=== PATIENT | female | born 1955 | race African-American/Black ===

== ENCOUNTER 2016-12-07 04:19 | Emergency (ER) | payer SELFPAY ==
[~2016-12-07] VITALS: Ht 172.7 cm; Wt 100.0 kg
[~2016-12-07 04:19] MED LIST: ASPIRIN 81 LOW81 MG PO; ASPIRIN325 MG PO; BABY ASPIRIN81 MG OR; BACTRIM DS1 TAB PO; CIPRO500 MG OR; CIPROFLOXACN500 MG PO; ERYTHROM ETH400 MG OR; FLEXERIL PO; HYZAAR1 TA1 OR; LOPRESSOR 550 MG/TAB PO; LOSARTAN POT50 MG PO; METFORMIN500 M1 PO; METFORMIN500 MG PO; METOPROLOL TART50 MG PO; NAPROSYN500 MG OR; NAPROSYN500 MG PO; PERCOCET 5/325M1 TAB PO; PRAVASTATIN SOD20 MG PO; ZITHROMAX250 MG OR
[2016-12-07] MEDS ORDERED: IBUPROFEN600 MG PO (06:59)
[2016-12-07 07:03] VITALS: BP 145/82
== END 2016-12-07 07:16 | disposition home or self-care (01) | DRG 563 ==
LOC: ED 04:19
DX: S83.92XA Sprain of unspecified site of left knee, initial encounter (principal); S80.02XA Contusion of left knee, initial encounter; W17.89XA Other fall from one level to another, initial encounter; Y93.01 Activity, walking, marching and hiking; Y92.480 Sidewalk as the place of occurrence of the external cause

== ENCOUNTER 2017-01-25 03:52 | Emergency (ER) | payer SELFPAY ==
[~2017-01-25] VITALS: Ht 172.7 cm; Wt 95.0 kg
[~2017-01-25 03:52] MED LIST changes: +IBUPROFEN600 MG PO
[2017-01-25] MEDS ORDERED: NAPROSYN500 MG PO (04:54)
[2017-01-25 05:10] VITALS: BP 148/81
== END 2017-01-25 05:10 | disposition home or self-care (01) | DRG 563 ==
LOC: ED 03:52
DX: S46.912A Strain of unspecified muscle, fascia and tendon at shoulder and upper arm level, left arm, initial encounter (principal); I10 Essential (primary) hypertension; E11.9 Type 2 diabetes mellitus without complications; X58.XXXA Exposure to other specified factors, initial encounter

== ENCOUNTER 2017-02-17 17:49 | Emergency (ER) | payer SELFPAY ==
[~2017-02-17] VITALS: Ht 172.7 cm; Wt 73.0 kg
[2017-02-17 18:23] LABS: HEMATOCRIT 43.4 % (37.0-47.0); HEMOGLOBIN 13.8 g/dl (12.0-16.0); IMMATURE GRANULOCYTES 0.2 % (0.0-1.0); MEAN CELL VOLUME 92.9 fL CALC (80.0-100.0); MEAN CORPUSCULAR HGB 29.6 pG CALC (26.0-32.0); MEAN CORPUSCULAR HGB CONC 31.8 g/L CALC (32.0-36.0); NEUT# 2.37 thou/uL (2.00-7.15); RED BLOOD COUNT 4.67 mill/uL (4.20-5.60)
[2017-02-17] MEDS ORDERED: ASPIRINCHW 81MG PO (18:23)
[2017-02-17 18:24] LABS: URINE BILIRUBIN - DIPSTICK NEGATIVE (NEGATIVE); URINE BLOOD DIPSTICK NEGATIVE (NEGATIVE); URINE CLARITY CLEAR; URINE COLOR YELLOW; URINE GLUCOSE - DIPSTICK NEGATIVE (NEGATIVE); URINE KETONE NEGATIVE (NEGATIVE); URINE LEUK ESTERASE NEGATIVE (NEGATIVE); URINE NITRITE - DIPSTICK NEGATIVE (Negative); URINE PH 5.5 (4.5-8.0); URINE PROTEIN - DIPSTICK TRACE mg/dL (NEG-TRACE); URINE SPECIFIC GRAVITY >=1.030
[2017-02-17 18:38] LABS: ALBUMIN 4.4 g/dL (3.2-5.0); ALKALINE PHOSPHATASE 110 u/l (38-126); AMYLASE 50 u/l (30-110); ANION GAP 17 (6-22 (CALC)); BILIRUBIN, TOTAL 0.3 mg/dL (0.0-1.4); BUN 9 mg/dL (8-23); BUN/CREATININE RATIO 15 (12-20 (CALC)); CALCIUM 9.6 mg/dL (8.4-10.2); CARBON DIOXIDE 29 mmol/l (22-30); CHLORIDE 106 mmol/l (95-108); CREATININE 0.6 mg/dL (0.5-1.0); GFR > 60 ML/MIN (>=60 (CALC)); GFR FOR AFR.AMER. > 60 ML/MIN (>=60 (CALC)); GLUCOSE 124 mg/dL (82-115); LIPASE 63 u/l (23-300); POTASSIUM 3.9 mmol/l (3.5-5.1); SGOT/AST 32 u/l (9-36); SGPT/ALT 29 u/l (11-66); SODIUM 148 mmol/l (137-146); TOTAL PROTEIN 8.3 g/dL (6.3-8.2)
[2017-02-17] MEDS ORDERED: LOMOTIL2.5 MG PO (20:21)
[2017-02-17] MEDS ORDERED: ZOFRAN ODT4 MG PO (20:21)
[2017-02-17 20:50] VITALS: BP 159/83
== END 2017-02-17 20:50 | disposition home or self-care (01) | DRG 392 ==
LOC: ED 17:49
PROVIDERS: Emergency Medicine
DX: K52.9 Noninfective gastroenteritis and colitis, unspecified (principal); I10 Essential (primary) hypertension; R10.30 Lower abdominal pain, unspecified; E11.9 Type 2 diabetes mellitus without complications; H91.90 Unspecified hearing loss, unspecified ear
CPT/HCPCS: Q9967

== ENCOUNTER 2017-05-30 01:23 | Emergency (ER) | payer SELFPAY ==
[~2017-05-30] VITALS: Ht 172.7 cm; Wt 92.8 kg
[~2017-05-30 01:23] MED LIST changes: +ASPIRINCHW 81MG PO; +LOMOTIL2.5 MG PO; +ZOFRAN ODT4 MG PO
[2017-05-30 02:59] LABS: HEMATOCRIT 40.1 % (37.0-47.0); HEMOGLOBIN 12.7 g/dl (12.0-16.0); IMMATURE GRANULOCYTES 0.3 % (0.0-1.0); MEAN CELL VOLUME 93.3 fL CALC (80.0-100.0); MEAN CORPUSCULAR HGB 29.5 pG CALC (26.0-32.0); MEAN CORPUSCULAR HGB CONC 31.7 g/L CALC (32.0-36.0); NEUT# 3.58 thou/uL (2.00-7.15); RED BLOOD COUNT 4.3 mill/uL (4.20-5.60); RED CELL DISTRI WIDTH 14.4 % (11.5-15.5)
[2017-05-30 03:07] LABS: URINE BILIRUBIN - DIPSTICK NEGATIVE (NEGATIVE); URINE BLOOD DIPSTICK TRACE-INTACT (NEGATIVE); URINE CLARITY SLIGHT CLOUDY; URINE COLOR YELLOW; URINE GLUCOSE - DIPSTICK NEGATIVE (NEGATIVE); URINE KETONE NEGATIVE (NEGATIVE); URINE NITRITE - DIPSTICK NEGATIVE (Negative); URINE PH 5.5 (4.5-8.0); URINE PROTEIN - DIPSTICK NEGATIVE (NEG-TRACE); URINE SPECIFIC GRAVITY >=1.030; URINE UROBILINOGEN - DIPSTICK 0.2 E.U./dL (0.2)
[2017-05-30 03:08] LABS: URINE LEUK ESTERASE SMALL (NEGATIVE)
[2017-05-30 03:13] LABS: ALBUMIN 4.4 g/dL (3.2-5.0); ALKALINE PHOSPHATASE 129 u/l (38-126); AMYLASE 64 u/l (30-110); ANION GAP 16 (6-22 (CALC)); BILIRUBIN, TOTAL 0.5 mg/dL (0.0-1.4); BUN 13 mg/dL (8-23); BUN/CREATININE RATIO 19 (12-20 (CALC)); CALCIUM 9.6 mg/dL (8.4-10.2); CARBON DIOXIDE 28 mmol/l (22-30); CHLORIDE 105 mmol/l (95-108); CREATININE 0.7 mg/dL (0.5-1.0); GFR > 60 ML/MIN (>=60 (CALC)); GFR FOR AFR.AMER. > 60 ML/MIN (>=60 (CALC)); GLUCOSE 122 mg/dL (82-115); LIPASE 116 u/l (23-300); SGOT/AST 18 u/l (9-36); SGPT/ALT 26 u/l (11-66); SODIUM 145 mmol/l (137-146); TOTAL PROTEIN 8.2 g/dL (6.3-8.2)
[2017-05-30 03:16] LABS: URINE BACTERIA FEW hpf; URINE MUCUS FEW hpf (NONE-FEW); URINE RBC 0-2 RBC/hpf (0-5); URINE SQUAMOUS EPITHELIAL CELL MODERATE EPI/hpf (0-FEW); URINE WBC 20-50 WBC/hpf (0-5)
[2017-05-30 03:24] LABS: MYOGLOBIN 24 ng/mL (0 - 62)
[2017-05-30] MEDS ORDERED: ZOFRAN ODT4 MG PO (04:45)
[2017-05-30] MEDS ORDERED: CIPROFLOXACN500 MG PO (04:45)
[2017-05-30 04:49] VITALS: BP 181/89
== END 2017-05-30 04:59 | disposition home or self-care (01) | DRG 690 ==
LOC: ED 01:23
PROVIDERS: Emergency Medicine
DX: N39.0 Urinary tract infection, site not specified (principal); R11.0 Nausea; R10.33 Periumbilical pain; R10.13 Epigastric pain
CPT/HCPCS: Q9967

== ENCOUNTER 2017-06-13 15:28 | Emergency (ER) | payer SELFPAY ==
[~2017-06-13] VITALS: Ht 172.7 cm; Wt 91.8 kg
[2017-06-13 18:17] LABS: URINE BILIRUBIN - DIPSTICK NEGATIVE (NEGATIVE); URINE BLOOD DIPSTICK NEGATIVE (NEGATIVE); URINE CLARITY CLEAR; URINE COLOR YELLOW; URINE GLUCOSE - DIPSTICK NEGATIVE (NEGATIVE); URINE KETONE TRACE mg/dL (NEGATIVE); URINE LEUK ESTERASE NEGATIVE (NEGATIVE); URINE NITRITE - DIPSTICK NEGATIVE (Negative); URINE PROTEIN - DIPSTICK NEGATIVE (NEG-TRACE); URINE SPECIFIC GRAVITY 1.025
[2017-06-13 18:57] LABS: HEMATOCRIT 37.8 % (37.0-47.0); HEMOGLOBIN 12.3 g/dl (12.0-16.0); IMMATURE GRANULOCYTES 0.3 % (0.0-1.0); MEAN CELL VOLUME 92.6 fL CALC (80.0-100.0); MEAN CORPUSCULAR HGB 30.1 pG CALC (26.0-32.0); MEAN CORPUSCULAR HGB CONC 32.5 g/L CALC (32.0-36.0); NEUT# 4.18 thou/uL (2.00-7.15); RED BLOOD COUNT 4.08 mill/uL (4.20-5.60); RED CELL DISTRI WIDTH 14.2 % (11.5-15.5)
[2017-06-13 19:09] LABS: ALBUMIN 3.9 g/dL (3.2-5.0); ALKALINE PHOSPHATASE 109 u/l (38-126); ANION GAP 15 (6-22 (CALC)); BILIRUBIN, TOTAL 0.4 mg/dL (0.0-1.4); BUN 10 mg/dL (8-23); BUN/CREATININE RATIO 16 (12-20 (CALC)); CALCIUM 9.8 mg/dL (8.4-10.2); CARBON DIOXIDE 29 mmol/l (22-30); CHLORIDE 104 mmol/l (95-108); CREATININE 0.6 mg/dL (0.5-1.0); GFR > 60 ML/MIN (>=60 (CALC)); GFR FOR AFR.AMER. > 60 ML/MIN (>=60 (CALC)); GLUCOSE 108 mg/dL (82-115); SGOT/AST 16 u/l (9-36); SGPT/ALT 26 u/l (11-66); SODIUM 143 mmol/l (137-146); TOTAL PROTEIN 7.3 g/dL (6.3-8.2)
[2017-06-13] MEDS ORDERED: LOMOTIL2.5 MG PO (19:14)
[2017-06-13] MEDS ORDERED: ZOFRAN ODT4 MG PO (19:14)
[2017-06-13 20:00] VITALS: BP 135/71
== END 2017-06-13 20:00 | disposition home or self-care (01) | DRG 392 ==
LOC: ED 15:28
PROVIDERS: Emergency Medicine
DX: K52.9 Noninfective gastroenteritis and colitis, unspecified (principal); I10 Essential (primary) hypertension; E11.9 Type 2 diabetes mellitus without complications; H91.90 Unspecified hearing loss, unspecified ear

== ENCOUNTER 2017-07-15 18:33 | Emergency (ER) | payer SELFPAY ==
[~2017-07-15] VITALS: Ht 172.7 cm; Wt 94.2 kg
[2017-07-15 19:58] LABS: URINE BILIRUBIN - DIPSTICK NEGATIVE (NEGATIVE); URINE BLOOD DIPSTICK TRACE-LYSED (NEGATIVE); URINE CLARITY CLEAR; URINE COLOR YELLOW; URINE GLUCOSE - DIPSTICK NEGATIVE (NEGATIVE); URINE KETONE NEGATIVE (NEGATIVE); URINE NITRITE - DIPSTICK NEGATIVE (Negative); URINE PH 7.5 (4.5-8.0); URINE PROTEIN - DIPSTICK TRACE mg/dL (NEG-TRACE); URINE SPECIFIC GRAVITY >=1.030
[2017-07-15 20:02] LABS: URINE LEUK ESTERASE SMALL (NEGATIVE)
[2017-07-15 20:53] LABS: ALBUMIN 3.9 g/dL (3.2-5.0); ALKALINE PHOSPHATASE 108 u/l (38-126); ANION GAP 12 (6-22 (CALC)); BILIRUBIN, TOTAL 0.4 mg/dL (0.0-1.4); BUN 10 mg/dL (8-23); BUN/CREATININE RATIO 15 (12-20 (CALC)); CALCIUM 9.4 mg/dL (8.4-10.2); CARBON DIOXIDE 32 mmol/l (22-30); CHLORIDE 107 mmol/l (95-108); CREATININE 0.6 mg/dL (0.5-1.0); GFR > 60 ML/MIN (>=60 (CALC)); GFR FOR AFR.AMER. > 60 ML/MIN (>=60 (CALC)); GLUCOSE 98 mg/dL (82-115); POTASSIUM 4.1 mmol/l (3.5-5.1); SGOT/AST 18 u/l (9-36); SGPT/ALT 24 u/l (11-66); SODIUM 146 mmol/l (137-146)
[2017-07-15 21:09] LABS: HEMATOCRIT 38.3 % (37.0-47.0); HEMOGLOBIN 12.3 g/dl (12.0-16.0); IMMATURE GRANULOCYTES 0.2 % (0.0-1.0); MEAN CELL VOLUME 94.1 fL CALC (80.0-100.0); MEAN CORPUSCULAR HGB 30.2 pG CALC (26.0-32.0); MEAN CORPUSCULAR HGB CONC 32.1 g/L CALC (32.0-36.0); NEUT# 3.09 thou/uL (2.00-7.15); RED BLOOD COUNT 4.07 mill/uL (4.20-5.60); RED CELL DISTRI WIDTH 14.5 % (11.5-15.5)
[2017-07-15 21:20] LABS: URINE BACTERIA FEW hpf; URINE SQUAMOUS EPITHELIAL CELL FEW EPI/hpf (0-FEW)
[2017-07-15] MEDS ORDERED: CIPROFLOXACN500 MG PO (21:56)
[2017-07-15 22:27] VITALS: BP 149/89
== END 2017-07-15 22:27 | disposition home or self-care (01) | DRG 948 ==
LOC: ED 18:33
PROVIDERS: Emergency Medicine
DX: R60.9 Edema, unspecified (principal); M25.572 Pain in left ankle and joints of left foot; M25.571 Pain in right ankle and joints of right foot; N39.0 Urinary tract infection, site not specified; I10 Essential (primary) hypertension; E11.9 Type 2 diabetes mellitus without complications; H91.90 Unspecified hearing loss, unspecified ear; Z59.0 Homelessness

== ENCOUNTER 2017-08-24 06:22 | Emergency (ER) | payer SELFPAY ==
[~2017-08-24] VITALS: Ht 172.7 cm; Wt 90.0 kg
[2017-08-24] MEDS ORDERED: ULTRAM50 MG PO (07:12)
[2017-08-24 07:18] VITALS: BP 137/98
== END 2017-08-24 07:18 | disposition home or self-care (01) | DRG 558 ==
LOC: ED 06:22
DX: M77.9 Enthesopathy, unspecified (principal); E11.9 Type 2 diabetes mellitus without complications; I10 Essential (primary) hypertension; H91.90 Unspecified hearing loss, unspecified ear

== ENCOUNTER 2017-09-15 13:53 | Emergency (ER) | payer SELFPAY ==
[~2017-09-15] VITALS: Ht 172.7 cm; Wt 85.0 kg
[~2017-09-15 13:53] MED LIST changes: +ULTRAM50 MG PO
[2017-09-15] MEDS ORDERED: DOXYCYC MONO100 M1 PO (16:23)
[2017-09-15] MEDS ORDERED: NAPROSYN500 MG PO (16:23)
[2017-09-15 16:30] VITALS: BP 119/74
== END 2017-09-15 16:30 | disposition home or self-care (01) | DRG 605 ==
LOC: ED 13:53
DX: S90.31XA Contusion of right foot, initial encounter (principal); E11.9 Type 2 diabetes mellitus without complications; I10 Essential (primary) hypertension; H91.90 Unspecified hearing loss, unspecified ear; W22.8XXA Striking against or struck by other objects, initial encounter

== ENCOUNTER 2017-10-04 12:02 | Emergency (ER) | payer SELFPAY ==
[~2017-10-04] VITALS: Ht 172.7 cm; Wt 90.0 kg
[~2017-10-04 12:02] MED LIST changes: +DOXYCYC MONO100 M1 PO
[2017-10-04] MEDS ORDERED: MOTRIN400 MG PO (12:57)
[2017-10-04] MEDS ORDERED: NORCO1 TA1 PO (12:57)
[2017-10-04 13:53] VITALS: BP 173/89
== END 2017-10-04 13:53 | disposition home or self-care (01) | DRG 563 ==
LOC: ED 12:02
PROC: 2W3QX1Z Immobilization of Right Lower Leg using Splint (ICD-10-PCS; principal; 2017-10-04)
DX: S92.514A Nondisplaced fracture of proximal phalanx of right lesser toe(s), initial encounter for closed fracture (principal); M25.571 Pain in right ankle and joints of right foot; W22.8XXA Striking against or struck by other objects, initial encounter; Y93.89 Activity, other specified; R22.41 Localized swelling, mass and lump, right lower limb; Y92.009 Unspecified place in unspecified non-institutional (private) residence as the place of occurrence of the external cause

== ENCOUNTER 2018-01-14 03:12 | Observation (INO) | payer SELFPAY ==
[~2018-01-14] VITALS: Ht 172.7 cm; Wt 88.0 kg
[~2018-01-14 03:12] MED LIST changes: +MOTRIN400 MG PO; +NORCO1 TA1 PO
[2018-01-14 03:50] LABS: URINE BILIRUBIN - DIPSTICK NEGATIVE (NEGATIVE); URINE BLOOD DIPSTICK NEGATIVE (NEGATIVE); URINE CLARITY CLEAR; URINE COLOR YELLOW; URINE GLUCOSE - DIPSTICK NEGATIVE (NEGATIVE); URINE KETONE NEGATIVE (NEGATIVE); URINE LEUK ESTERASE TRACE (NEGATIVE); URINE NITRITE - DIPSTICK NEGATIVE (Negative); URINE PROTEIN - DIPSTICK NEGATIVE (NEG-TRACE); URINE SPECIFIC GRAVITY 1.025
[2018-01-14 03:51] LABS: BARBITURATES NEGATIVE (NEGATIVE); COCAINE NEGATIVE (NEGATIVE); METHADONE NEGATIVE (NEGATIVE); OXCYCODONE NEGATIVE (NEGATIVE); TETRAHYDROCANNABIONOL NEGATIVE (NEGATIVE); TRICYLIC ANTIDEPRESSANTS NEGATIVE (NEGATIVE)
[2018-01-14 04:00] LABS: ALBUMIN 4.4 g/dL (3.2-5.0); ALKALINE PHOSPHATASE 137 u/l (38-126); ANION GAP 18 (6-22 (CALC)); BILIRUBIN, TOTAL 0.3 mg/dL (0.0-1.4); BUN 13 mg/dL (8-23); BUN/CREATININE RATIO 19 (12-20 (CALC)); CARBON DIOXIDE 27 mmol/l (22-30); CHLORIDE 102 mmol/l (95-108); CREATININE 0.7 mg/dL (0.5-1.0); GFR > 60 ML/MIN (>=60 (CALC)); GFR FOR AFR.AMER. > 60 ML/MIN (>=60 (CALC)); POTASSIUM 3.6 mmol/l (3.5-5.1); SGOT/AST 20 u/l (9-36); SGPT/ALT 25 u/l (11-66); SODIUM 143 mmol/l (137-146); TOTAL PROTEIN 8.4 g/dL (6.3-8.2)
[2018-01-14 04:05] LABS: HEMATOCRIT 41.3 % (37.0-47.0); HEMOGLOBIN 13.2 g/dl (12.0-16.0); IMMATURE GRANULOCYTES 0.3 % (0.0-1.0); MEAN CELL VOLUME 93.7 fL CALC (80.0-100.0); MEAN CORPUSCULAR HGB 29.9 pG CALC (26.0-32.0); NEUT# 3.54 thou/uL (2.00-7.15); RED BLOOD COUNT 4.41 mill/uL (4.20-5.60); RED CELL DISTRI WIDTH 14.4 % (11.5-15.5)
[2018-01-14 04:07] LABS: PROTHROMBIN TIME 10.6 SECONDS (9.0-12.5)
[2018-01-14 04:12] LABS: MYOGLOBIN 24 ng/mL (0 - 62)
[2018-01-14 06:53] LABS: CHOLESTEROL HDL RATIO 2.8 (<4.4 (CALC))
[2018-01-14 07:05] VITALS: BP 166/90
[2018-01-14 08:35] VITALS: BP 125/75
[2018-01-14 11:11] VITALS: BP 146/78
[2018-01-14 15:34] VITALS: BP 131/73
[2018-01-14 19:15] VITALS: BP 137/79
[2018-01-15 00:08] VITALS: BP 131/67
[2018-01-15 04:20] VITALS: BP 153/85
[2018-01-15 07:40] VITALS: BP 147/101
[2018-01-15 10:57] VITALS: BP 149/79
== END 2018-01-15 13:00 | disposition home or self-care (01) | DRG 313 ==
LOC: ED 03:12 → ED-I 05:20 → ED 06:04 → MS2 06:05
PROVIDERS: Emergency Medicine; ADMIT Internal Medicine; ATTEND Internal Medicine
DX: R07.89 Other chest pain (principal); I49.3 Ventricular premature depolarization; R42 Dizziness and giddiness; E11.9 Type 2 diabetes mellitus without complications; E78.00 Pure hypercholesterolemia, unspecified; I10 Essential (primary) hypertension; H91.90 Unspecified hearing loss, unspecified ear; F43.9 Reaction to severe stress, unspecified; Z86.73 Personal history of transient ischemic attack (TIA), and cerebral infarction without residual deficits
CPT/HCPCS: G0378

== ENCOUNTER 2018-02-05 10:53 | Emergency (ER) | payer SELFPAY ==
[~2018-02-05] VITALS: Ht 172.7 cm; Wt 90.0 kg
[2018-02-05 12:11] VITALS: BP 154/74
== END 2018-02-05 12:11 | disposition home or self-care (01) | DRG 605 ==
LOC: ED 10:53
DX: S80.02XA Contusion of left knee, initial encounter (principal); E11.9 Type 2 diabetes mellitus without complications; E78.00 Pure hypercholesterolemia, unspecified; I10 Essential (primary) hypertension; V18.0XXA Pedal cycle driver injured in noncollision transport accident in nontraffic accident, initial encounter; Y93.55 Activity, bike riding; Z86.73 Personal history of transient ischemic attack (TIA), and cerebral infarction without residual deficits

== ENCOUNTER 2018-11-08 09:58 | Emergency (ER) | payer SELFPAY ==
[~2018-11-08] VITALS: Ht 172.7 cm; Wt 90.5 kg
[2018-11-08 12:03] VITALS: BP 158/87
== END 2018-11-08 12:03 | disposition home or self-care (01) | DRG 563 ==
LOC: ED 09:58
DX: S66.912A Strain of unspecified muscle, fascia and tendon at wrist and hand level, left hand, initial encounter (principal); E11.9 Type 2 diabetes mellitus without complications; I10 Essential (primary) hypertension; E78.00 Pure hypercholesterolemia, unspecified; Z86.73 Personal history of transient ischemic attack (TIA), and cerebral infarction without residual deficits; X58.XXXA Exposure to other specified factors, initial encounter

== ENCOUNTER 2019-03-15 06:55 | Emergency (ER) | payer MEDICARE ==
[~2019-03-15] VITALS: Ht 172.7 cm; Wt 86.3 kg
[2019-03-15 08:54] VITALS: BP 165/83
== END 2019-03-15 08:54 | disposition home or self-care (01) ==
LOC: ED 06:55
DX: S00.12XA Contusion of left eyelid and periocular area, initial encounter (principal); S76.011A Strain of muscle, fascia and tendon of right hip, initial encounter; E11.9 Type 2 diabetes mellitus without complications; I10 Essential (primary) hypertension; W20.8XXA Other cause of strike by thrown, projected or falling object, initial encounter; Y92.008 Other place in unspecified non-institutional (private) residence as the place of occurrence of the external cause; W01.0XXA Fall on same level from slipping, tripping and stumbling without subsequent striking against object, initial encounter; Z86.73 Personal history of transient ischemic attack (TIA), and cerebral infarction without residual deficits

== ENCOUNTER 2019-08-12 07:58 | Day surgery (SDC) | payer MEDICARE, MEDICAID ==
[~2019-08-12] VITALS: Ht 162.6 cm; Wt 88.5 kg
[2019-08-12 10:23] VITALS: BP 147/91
== END 2019-08-12 10:38 | disposition home or self-care (01) ==
LOC: ENDO 07:58
PROVIDERS: ATTEND Surgery
PROC: 0DBL8ZX Excision of Transverse Colon, Via Natural or Artificial Opening Endoscopic, Diagnostic (ICD-10-PCS; principal; 2019-08-12)
DX: Z12.11 Encounter for screening for malignant neoplasm of colon (principal); K63.5 Polyp of colon; E11.9 Type 2 diabetes mellitus without complications; I10 Essential (primary) hypertension; Z79.4 Long term (current) use of insulin

== ENCOUNTER 2019-10-16 | Emergency (ER) | payer MEDICARE, MEDICAID ==
[2019-10-16 03:02] LABS: HEMATOCRIT 37.9 % (37.0-47.0); HEMOGLOBIN 12.1 g/dl (12.0-16.0); IMMATURE GRANULOCYTES 0.2 % (0.0-5.0); MEAN CELL VOLUME 92.4 fL CALC (80.0-100.0); MEAN CORPUSCULAR HGB 29.5 pG CALC (26.0-32.0); MEAN CORPUSCULAR HGB CONC 31.9 g/L CALC (32.0-36.0); NEUT# 3.48 thou/uL (2.00-7.15); RED BLOOD COUNT 4.1 mill/uL (4.20-5.60); RED CELL DISTRI WIDTH 14.2 % (11.5-15.5)
[2019-10-16 03:22] LABS: ALBUMIN 4.1 g/dL (3.2-5.0); ALKALINE PHOSPHATASE 109 u/l (38-126); BILIRUBIN, TOTAL 0.3 mg/dL (0.0-1.4); BUN 10 mg/dL (8-23); BUN/CREATININE RATIO 22 (12-20 (CALC)); CARBON DIOXIDE 28 mmol/l (22-30); CHLORIDE 102 mmol/l (95-108); CREATININE 0.5 mg/dL (0.5-1.0); GFR > 60 ML/MIN (>=60 (CALC)); GFR FOR AFR.AMER. > 60 ML/MIN (>=60 (CALC)); SGOT/AST 18 u/l (9-36); SODIUM 140 mmol/l (137-146); TOTAL PROTEIN 7.5 g/dL (6.3-8.2)
[2019-10-16 03:26] LABS: ANION GAP 15 (6-22 (CALC)); POTASSIUM 4.5 mmol/l (3.5-5.1)
[2019-10-16 03:33] LABS: MYOGLOBIN 46 ng/mL (0 - 62)
== END 2019-10-16 03:51 | disposition home or self-care (01) ==
PROVIDERS: Emergency Medicine
DX: I10 Essential (primary) hypertension (principal); E11.9 Type 2 diabetes mellitus without complications; Z79.84 Long term (current) use of oral hypoglycemic drugs

== ENCOUNTER 2022-02-09 11:26 | Emergency (ER) | payer MEDICARE ==
[~2022-02-09] VITALS: Ht 162.6 cm; Wt 70.0 kg
[2022-02-09 11:45] VITALS: BP 131/109
[2022-02-09 12:01] VITALS: BP 137/81
[2022-02-09 12:15] VITALS: BP 141/72
[2022-02-09 12:31] VITALS: BP 138/71
[2022-02-09 12:45] VITALS: BP 131/71
[2022-02-09] MEDS ORDERED: VIBRAMYCIN100 M2 PO ×2 (12:47→13:03)
[2022-02-09 12:57] VITALS: BP 131/71
== END 2022-02-09 13:10 | disposition home or self-care (01) ==
LOC: ED 11:26
DX: E11.621 Type 2 diabetes mellitus with foot ulcer (principal); L97.519 Non-pressure chronic ulcer of other part of right foot with unspecified severity; I10 Essential (primary) hypertension; Z79.84 Long term (current) use of oral hypoglycemic drugs

== ENCOUNTER 2022-05-08 17:10 | Emergency (ER) | payer MEDICARE ==
[~2022-05-08] VITALS: Ht 162.6 cm; Wt 78.5 kg
[~2022-05-08 17:10] MED LIST changes: +VIBRAMYCIN100 M2 PO
[2022-05-08 19:09] VITALS: BP 168/78
== END 2022-05-08 18:20 | disposition home or self-care (01) ==
LOC: ED 18:10
DX: K59.00 Constipation, unspecified (principal); I10 Essential (primary) hypertension; E11.9 Type 2 diabetes mellitus without complications; Z79.84 Long term (current) use of oral hypoglycemic drugs

== ENCOUNTER 2022-08-11 07:13 | Emergency (ER) | payer OTHER, MEDICARE ==
[~2022-08-11] VITALS: Ht 162.6 cm; Wt 63.6 kg
[2022-08-11] MEDS ORDERED: MOTRIN400 MG/TAB PO (07:37)
[2022-08-11 07:40] VITALS: BP 170/97
== END 2022-08-11 08:09 | disposition home or self-care (01) | DRG 552 ==
LOC: ED 07:13
DX: M54.9 Dorsalgia, unspecified (principal); V43.62XA Car passenger injured in collision with other type car in traffic accident, initial encounter; Y92.488 Other paved roadways as the place of occurrence of the external cause

== ENCOUNTER 2023-01-19 17:32 | Emergency (ER) | payer MEDICARE ==
[~2023-01-19] VITALS: Ht 162.6 cm; Wt 77.1 kg
[2023-01-19] VITALS (9 sets, daily range): BP systolic 137–169; BP diastolic 72–100
[~2023-01-19 17:32] MED LIST changes: +MOTRIN400 MG/TAB PO
[2023-01-19] MEDS ORDERED: NAPROXEN500 MG PO (19:28)
[2023-01-19] MEDS ORDERED: MEDDOSEPAK PO (19:28)
== END 2023-01-19 20:37 | disposition home or self-care (01) ==
LOC: ED 17:32
DX: M25.561 Pain in right knee (principal); I10 Essential (primary) hypertension; E11.9 Type 2 diabetes mellitus without complications; Z79.84 Long term (current) use of oral hypoglycemic drugs

== ENCOUNTER 2023-05-04 08:28 | Emergency (ER) | payer MEDICARE, MEDICAID ==
[2023-05-04] VITALS (9 sets, daily range): BP systolic 152–169; BP diastolic 82–110
[~2023-05-04] VITALS: Ht 165.1 cm; Wt 77.1 kg
[~2023-05-04 08:28] MED LIST changes: +MEDDOSEPAK PO; +NAPROXEN500 MG PO
[2023-05-04] MEDS ORDERED: MELOXICAM7.5 MG PO (09:43)
[2023-05-04] MEDS ORDERED: MEDROL DOSEPAK4 MG PO (09:43)
== END 2023-05-04 10:10 | disposition home or self-care (01) ==
LOC: ED 08:28
DX: M17.0 Bilateral primary osteoarthritis of knee (principal); I10 Essential (primary) hypertension; E11.9 Type 2 diabetes mellitus without complications; Z79.84 Long term (current) use of oral hypoglycemic drugs

== ENCOUNTER 2024-03-19 07:32 | Emergency (ER) | payer MEDICARE ==
[~2024-03-19] VITALS: Ht 165.1 cm; Wt 77.1 kg
[~2024-03-19 07:32] MED LIST changes: +CEPHALEXIN500 M1 PO; +MEDROL DOSEPAK4 MG PO; +MELOXICAM7.5 MG PO; +PREDNISONE20 MG PO
[2024-03-19 07:38] VITALS: BP 140/76
[2024-03-19 07:45] VITALS: BP 136/70
[2024-03-19 08:00] VITALS: BP 123/75
== END 2024-03-19 08:05 | disposition home or self-care (01) ==
LOC: ED 07:32
PROC: 0HQGXZZ Repair Left Hand Skin, External Approach (ICD-10-PCS; principal; 2024-03-19)
DX: T81.33XA Disruption of traumatic injury wound repair, initial encounter (principal); I10 Essential (primary) hypertension; E11.9 Type 2 diabetes mellitus without complications; Y83.8 Other surgical procedures as the cause of abnormal reaction of the patient, or of later complication, without mention of misadventure at the time of the procedure; Z79.84 Long term (current) use of oral hypoglycemic drugs

== ENCOUNTER 2024-11-29 22:02 | Emergency (ER) | payer MEDICARE ==
[~2024-11-29] VITALS: Ht 165.1 cm; Wt 81.6 kg
[2024-11-29 22:13] VITALS: BP 171/83
[2024-11-29 22:16] VITALS: BP 181/97
[2024-11-29] MEDS ORDERED: KETOROLAC TROMETHAMINE 30 MG/ML SDV IM ONE (22:45)
[2024-11-29 22:49] LABS: URINE BILIRUBIN - DIPSTICK Negative (NEGATIVE); URINE BLOOD DIPSTICK Negative (NEGATIVE); URINE GLUCOSE - DIPSTICK Negative (NEGATIVE); URINE KETONE Trace mg/dL (NEGATIVE); URINE LEUK ESTERASE Negative (NEGATIVE); URINE NITRITE - DIPSTICK Negative (Negative); URINE PH 5.5 (4.5-8.0); URINE PROTEIN - DIPSTICK Negative (NEG-TRACE); URINE SPECIFIC GRAVITY >=1.030; URINE UROBILINOGEN - DIPSTICK 0.2 E.U./dL (0.2)
[2024-11-29 22:51] LABS: URINE COLOR Yellow
[2024-11-29 23:06] VITALS: BP 142/85
[2024-11-29 23:15] VITALS: BP 151/84
[2024-11-29 23:31] VITALS: BP 146/74
[2024-11-29] MEDS ORDERED: EC-NAPROXEN500 MG PO (23:44)
[2024-11-29] MEDS ORDERED: DECADRON4 MG PO (23:44)
[2024-11-30 00:01] VITALS: BP 146/74
== END 2024-11-29 23:55 | disposition home or self-care (01) ==
LOC: ED 22:02
PROVIDERS: Family Medicine
DX: S33.5XXA Sprain of ligaments of lumbar spine, initial encounter (principal); I10 Essential (primary) hypertension; E11.9 Type 2 diabetes mellitus without complications; X50.3XXA Overexertion from repetitive movements, initial encounter; Y93.H2 Activity, gardening and landscaping; Z79.84 Long term (current) use of oral hypoglycemic drugs; Z87.440 Personal history of urinary (tract) infections